=== PATIENT | female | born 1970 | race Caucasian/White ===

== ENCOUNTER 2019-01-12 11:24 | Emergency (ER) | payer OTHER ==
--- OUTSIDE RECORDS SUMMARY | 2019-01-12 11:30 | XMS REPORT ---
:1970 [facility] Address [address] [place] [address] [address] [place] [address] Care Team Providers Name Role Phone Unavailable Unavailable Unavailable Payers Payer Name Policy Type Policy Number Effective Date Expiration Date Problems This patient has no known problems. Allergies, Adverse Reactions, Alerts Allergy Name Allergy Status Severity Reaction(s) Onset Inactive Treating Comments Type Date Date Clinician No Known DA Active U 2008-0 Contrast 3-08 Allergies 00:00: 00 No Known Drug DA Active U 2008-0 Allergies 3-08 00:00: 00 No Known Food DA Active U 2009-0 Allergies 3-08 00:00: 00 No Known Other DA Active U 2009-0 Allergies 3-08 00:00: 00 No Known Drug DA Active U 2008-0 Intolerances 2-25 00:00: 00 Medications This patient has no known medications.
[2019-01-12 11:55] LABS: Absolute Lymphocytes (CBC) 2.3 K/uL (0.7-4.9); Basophils % 0.8 % (0-1.3); Hematocrit 37.6 % (36.0-45.0); Lymphocytes % 33.7 % (15.3-44.8); MPV 9.5 fL (7.6-11.3); RBC Red Blood Cell Count 4.47 M/uL (3.86-4.86)
--- NOTE | 2019-01-12 12:05 | RAD REPORT ---
EXAM DESCRIPTION: RAD - Chest Single View - 01/12/2019 11:50 am CLINICAL HISTORY: CHEST PAIN Chest pain. COMPARISON: No comparisons FINDINGS: Portable technique limits examination quality. The lungs are grossly clear. The heart is normal in size. No displaced fractures. IMPRESSION: No acute intrathoracic process suspected.
[2019-01-12] MEDS ORDERED: KETOROLAC 30 MG/ML INJ ONE (12:13)
[2019-01-12] MEDS ORDERED: ASPIRIN 81 MG CHEWABLE TABLET ONE (12:14)
[2019-01-12] MEDS ORDERED: NA CHLORIDE 0.9% 1,000 ML ONE (12:14)
[2019-01-12 12:17] LABS: ALT/SGPT 12 U/L (12-78); AST/SGOT 7 U/L (15-37); Albumin 3.6 g/dL (3.4-5.0); Alkaline Phosphatase 36 U/L (45-117); BUN Blood Urea Nitrogen 8 mg/dL (7-18); Bicarbonate 23 mmol/L (21-32); Bilirubin Direct 0.1 mg/dL (0-0.2); Bilirubin Total 0.3 mg/dL (0.2-1.0); Glucose Level 97 mg/dL (74-106); Magnesium 2.1 mg/dL (1.8-2.4); NT PRO-BNP 106 pg/mL (<125); Potassium 3.7 mmol/L (3.5-5.1); Protein, Total 7.2 g/dL (6.4-8.2); Sodium Level 143 mmol/L (136-145); Troponin (Emerg Dept Use Only) < 0.02 ng/mL (0.0-0.045)
[2019-01-12 12:18] LABS: Protime INR 0.88
--- NOTE | 2019-01-12 14:56 | EKG ---
Test Date: 2019-01-12 Test Time: 11:33:23 Patient Safety Manager: STEVAN MEASUREMENT RESULTS: Intervals: Rate: 94 [place]: 144 QRSD: 94 QT: 372 QTc: 465 [place]: P: 77 NJ: 144 QRS: 62 T: 54 INTERPRETIVE STATEMENTS: Normal sinus rhythm Normal ECG No previous ECG available for comparison Electronically Signed On 01-12-19 14:56:02 CDT by Mohan Dalton
[2019-01-12 16:26] LABS: Urine Blood NEGATIVE (NEG); Urine Glucose NEGATIVE (NEG); Urine Protein NEGATIVE (NEG); Urine pH 6.5 (5.0-7.0)
[2019-01-12 16:55] LABS: Urine RBC <5 /HPF (NONE SEEN)
[2019-01-12 16:56] LABS: Urine Bacteria 20-50 /HPF (<20); Urine Culture Reflex Order REFLEXED; Urine Mucus 2+ /HPF (NONE SEEN)
[2019-01-12] MEDS ORDERED: TRAMADOL HCL 50 MG TAB ONE (17:08)
--- NOTE | 2019-01-12 19:17 | ER ---
Nurse's Notes [facility] Name: Gali Najera Age: 48 yrs Sex: Female : 1970 Arrival Date: 01/12/2019 Time: 11:27 Bed 16 Private MD: Diagnosis: Chest pain, unspecified Presentation: 01/12 11:27 Presenting complaint: Patient states: "As I was driving this morning I started to have aj1 severe pain, I got home and tried to lay down and rest but I'm still feeling it. It's hard to breath, and it feels like I'm being squeezed." Reports left sided chest pain. Denies nausea, palpitations. Transition of care: patient was not received from another setting of care. Onset of symptoms was January 12, 2019 at 06:45. Risk Assessment: Do you want to hurt yourself or someone else? Patient reports no desire to harm self or others. Initial Sepsis Screen: Does the patient meet any 2 criteria? HR > 90 bpm. No. Patient's initial sepsis screen is negative. Does the patient have a suspected source of infection? No. Patient's initial sepsis screen is negative. Care prior to arrival: None. 11:27 Method Of Arrival: Wheelchair aj1 11:27 Acuity: RUPINDER 3 aj1 Triage Assessment: 11:29 General: Appears in no apparent distress. uncomfortable, Behavior is calm, cooperative, aj1 appropriate for age. Pain: Complains of pain in left breast Pain currently is 9 out of 10 on a pain scale. Pain: Pain does not radiate. Pain Quality of pain is described as squeezing. Neuro: Level of Consciousness is awake, alert, obeys commands, Oriented to person, place, time, situation. Cardiovascular: Reports chest pain, shortness of breath, Denies nausea, palpitations, Patient's skin is warm and dry. Respiratory: Airway is patent Respiratory effort is even, unlabored, Respiratory pattern is regular, symmetrical. 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 - Social history:: Smoking status: Patient/guardian denies using tobacco. - Ebola Screening: : Patient denies travel to an Ebola-affected area in the 21 days before illness onset. Screenin:48 Abuse screen: Denies threats or abuse. Denies injuries from another. Nutritional ss screening: No deficits noted. Tuberculosis screening: Never had TB. Fall Risk No fall in past 12 months (0 pts). No secondary diagnosis (0 pts). IV access (20 points). Assessment: 11:49 General: Appears uncomfortable, Behavior is anxious, tearful. Denies fever, feeling ss ill, fatigue, chills. Pain: Complains of pain in behind left breast Pain does not radiate. Pain currently is 6 out of 10 on a pain scale. at worst was 9 out of 10 on a pain scale. Quality of pain is described as squeezing, tender, Pain began this morning while driving Is continuous. Neuro: Level of Consciousness is awake, alert, obeys commands. Cardiovascular: Capillary refill < 3 seconds is brisk in bilateral fingers Patient's skin is warm and dry. Respiratory: Reports pain with cough pain with movement pain with respiration Airway is patent Respiratory effort is even, unlabored, Respiratory pattern is regular, symmetrical, Breath sounds are clear bilaterally. Denies cough, shortness of breath labored breathing. GI: Patient currently denies abdominal pain, diarrhea, nausea, vomiting. : No signs and/or symptoms were reported regarding the genitourinary system. EENT: Oral mucosa is dry. Derm: Skin is intact, is healthy with good turgor, Skin is dry, Skin is pink, warm \\T\\ dry. normal. Musculoskeletal: Circulation, motion, and sensation intact. Range of motion: intact in all extremities, Swelling absent. 12:23 General: I agree with the above assessment. Bed is in low, locked position. Call light rb1 within reach.. 13:20 Reassessment: Patient appears in no apparent distress at this time. Patient and/or rb1 family updated on plan of care and expected duration. Pain level reassessed. Patient is alert, oriented x 3, equal unlabored respirations, skin warm/dry/pink. Denies pain at this time. 14:19 Reassessment: Patient appears in no apparent distress at this time. No changes from rb1 previously documented assessment. 15:17 Reassessment: Patient appears in no apparent distress at this time. Patient and/or rb1 family updated on plan of care and expected duration. Pain level reassessed. Patient is alert, oriented x 3, equal unlabored respirations, skin warm/dry/pink. Patient states feeling better. 16:15 Reassessment: Patient appears in no apparent distress at this time. No changes from rb1 previously documented assessment. 16:37 Reassessment: Pt. requested something for pain; provider notified. rb1 17:00 Reassessment: Patient appears in no apparent distress at this time. Patient and/or rb1 family updated on plan of care and expected duration. Pain level reassessed. Patient is alert, oriented x 3, equal unlabored respirations, skin warm/dry/pink. Vital Signs: 11:29 BP 127 / 66; Pulse 93; Resp 18; Temp 99.2; Pulse Ox 99% on R/A; Weight 70.31 kg (R); aj1 Height 5 ft. 3 in. (160.02 cm) (R); Pain 9/10; 12:27 BP 126 / 68; Pulse 84; Resp 17; Temp 98.1(O); Pulse Ox 99% on R/A; Pain 6/10; rb1 13:25 BP 118 / 76; Pulse 74; Resp 15; Temp 98.1(O); Pulse Ox 100% on R/A; Pain 0/10; rb1 14:25 BP 110 / 66; Pulse 80; Resp 14; Temp 98.3(O); Pulse Ox 100% on R/A; rb1 15:20 BP 117 / 65; Pulse 82; Resp 18; Temp 98.2(O); Pulse Ox 100% on R/A; rb1 16:20 BP 128 / 78; Pulse 80; Resp 16; Temp 98.4(O); Pulse Ox 99% on R/A; Pain 6/10; rb1 17:15 BP 121 / 58; Pulse 81; Resp 20; Temp 98.3(O); Pulse Ox 100% on R/A; Pain 6/10; rb1 11:29 Body Mass Index 27.46 (70.31 kg, 160.02 cm) aj1 ED Course: 11:27 Patient arrived in ED. aj1 11:29 Triage completed. aj1 11:31 Arm band placed on. aj1 11:33 Dorian Vanessa PA is PHCP. cp 11:33 Isaac Aceves MD is Attending Physician. cp 11:48 Patient has correct armband on for positive identification. laboratory monitor on. Pulse ss ox on. NIBP on. 11:48 Inserted saline lock: 20 gauge in left antecubital area, using aseptic technique. Blood ss collected. Patient maintains SpO2 saturation greater than 95% on room air. 12:11 Katrina Garza, RN is Primary Nurse. rb1 16:09 EKG done, by staging technician. reviewed by Dorian TIM. sm3 16:58 Scot Garzon MD is Referral Physician. cp 17:25 No provider procedures requiring assistance completed. IV discontinued, intact, rb1 bleeding controlled, No redness/swelling at site. Pressure dressing applied. Administered Medications: 12:22 Drug: TORadol 30 mg Route: IVP; Site: left antecubital; rb1 12:35 Follow up: Response: No adverse reaction; Pain is decreased rb1 12:22 Drug: NS 0.9% 1000 ml Route: IV; Rate: 1 bolus; Site: left antecubital; rb1 13:33 Follow up: IV Status: Completed infusion rb1 12:22 Drug: Aspirin Chewable Tablet 324 mg Route: PO; rb1 12:35 Follow up: Response: No adverse reaction rb1 17:05 Drug: UltRAM 50 mg Route: PO; rb1 17:18 Follow up: Response: Medication administered at discharge. rb1 17:17 Not Given (Provider changed order): Hydrocodone-Acetaminophen (7.5 mg-325 mg) 1 tabs PO rb1 once; RASS on ADMIN: Combtv4, Very Agttd3, Agttd2, Rstlss1, AlertClm0, Drwsy-1, Lt Sdtn-2, Mod Sdtn-3, Dp Sdtn-4, UnArsble-5 Outcome: 16:58 Discharge ordered by MD. cp 17:25 Patient left the ED. rb1 17:25 Discharged to home ambulatory, with family. rb1 17:25 Condition: stable 17:25 Discharge instructions given to patient, Instructed on discharge instructions, follow up and referral plans. medication usage, Demonstrated understanding of instructions, follow-up care, medications, Prescriptions given X 3. Signatures: Danita Blue RN RN aj1 Cheli Jeff RN RN ss Page, Corey, PA PA cp Greg, Katrina, RN RN rb1 Rhona Morris 3
--- NOTE | 2019-01-12 19:18 | EDPHYS ---
Physician Documentation [facility] Name: Gali Najera Age: 48 yrs Sex: Female : 1970 Arrival Date: 01/12/2019 Time: 11:27 Bed 16 Private MD: ED Physician Isaac Aceves HPI: 01/12 11:45 This 48 yrs old Female presents to ER via Wheelchair with complaints of Chest cp Pain. 11:45 The patient or guardian reports chest pain that is located primarily in the anterior cp chest wall, left. Onset: this morning, at 06:30. The pain does not radiate. Associated signs and symptoms: Pertinent negatives: abdominal pain, congestion, cough, fever, headache, wheezing. 11:45 The chest pain is described as squeezing. cp 11:45 Associated signs and symptoms: Pertinent positives: shortness of breath, Pertinent cp negatives: abdominal pain, diaphoresis, lower extremity pain, lower extremity swelling, syncope, vomiting. Duration: The patient or guardian reports a single episode, that is still ongoing, and unchanged. 11:45 Severity of pain: in the emergency department the pain is a 9 / 10. 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 - Social history:: Smoking status: Patient/guardian denies using tobacco. - Ebola Screening: : Patient denies travel to an Ebola-affected area in the 21 days before illness onset. ROS: 11:50 Constitutional: Negative for body aches, chills, fever, poor PO intake. cp 11:50 Eyes: Negative for injury, pain, redness, and discharge. cp 11:50 ENT: Negative for drainage from ear(s), ear pain, sore throat, difficulty swallowing, difficulty handling secretions. 11:50 Cardiovascular: Positive for chest pain, Negative for edema, palpitations. 11:50 Respiratory: Positive for shortness of breath, Negative for cough, wheezing. 11:50 Abdomen/GI: Negative for abdominal pain, nausea, vomiting, and diarrhea, black/tarry stool, rectal bleeding. 11:50 Back: Negative for pain at rest, pain with movement, radiated pain. 11:50 : Negative for urinary symptoms. 11:50 Skin: Negative for cellulitis, rash. 11:50 Neuro: Negative for altered mental status, dizziness, headache, syncope, weakness. 11:50 All other systems are negative. Exam: 11:40 ECG was reviewed by the Attending Physician. cp 11:55 Constitutional: The patient appears in no acute distress, alert, awake, cp non-diaphoretic, non-toxic, well developed, well nourished, uncomfortable. 11:55 Head/Face: Normocephalic, atraumatic. Eyes: Pupils equal round and reactive to light, cp extra-ocular motions intact. Lids and lashes normal. Conjunctiva and sclera are non-icteric and not injected. Cornea within normal limits. Periorbital areas with no swelling, redness, or edema. ENT: Nares patent. No nasal discharge, no septal abnormalities noted. Tympanic membranes are normal and external auditory canals are clear. Oropharynx with no redness, swelling, or masses, exudates, or evidence of obstruction, uvula midline. Mucous membranes moist. Neck: Trachea midline, no thyromegaly or masses palpated, and no cervical lymphadenopathy. Supple, full range of motion without nuchal rigidity, or vertebral point tenderness. No Meningismus. Chest/axilla: Normal chest wall appearance and motion. Nontender with no deformity. No lesions are appreciated. Cardiovascular: Regular rate and rhythm with a normal S1 and S2. No gallops, murmurs, or rubs. Normal PMI, no JVD. No pulse deficits. Respiratory: Lungs have equal breath sounds bilaterally, clear to auscultation and percussion. No rales, rhonchi or wheezes noted. No increased work of breathing, no retractions or nasal flaring. Abdomen/GI: Soft, non-tender, with normal bowel sounds. No distension or tympany. No guarding or rebound. No evidence of tenderness throughout. Back: No spinal tenderness. No costovertebral tenderness. Full range of motion. 11:55 Neuro: Orientation: to person, place \T\ time. Mentation: is normal, Motor: moves all fours, strength is normal, Sensation: no obvious gross deficits. Vital Signs: 11:29 BP 127 / 66; Pulse 93; Resp 18; Temp 99.2; Pulse Ox 99% on R/A; Weight 70.31 kg (R); aj1 Height 5 ft. 3 in. (160.02 cm) (R); Pain 9/10; 12:27 BP 126 / 68; Pulse 84; Resp 17; Temp 98.1(O); Pulse Ox 99% on R/A; Pain 6/10; rb1 13:25 BP 118 / 76; Pulse 74; Resp 15; Temp 98.1(O); Pulse Ox 100% on R/A; Pain 0/10; rb1 14:25 BP 110 / 66; Pulse 80; Resp 14; Temp 98.3(O); Pulse Ox 100% on R/A; rb1 15:20 BP 117 / 65; Pulse 82; Resp 18; Temp 98.2(O); Pulse Ox 100% on R/A; rb1 16:20 BP 128 / 78; Pulse 80; Resp 16; Temp 98.4(O); Pulse Ox 99% on R/A; Pain 6/10; rb1 17:15 BP 121 / 58; Pulse 81; Resp 20; Temp 98.3(O); Pulse Ox 100% on R/A; Pain 6/10; rb1 11:29 Body Mass Index 27.46 (70.31 kg, 160.02 cm) aj1 MDM: 11:35 Patient medically screened. cp 16:57 The patient was given aspirin in the Emergency Department. cp 16:57 Differential diagnosis: abnormal EKG, acute myocardial infarction, acute pericarditis, cp chest wall pain, pneumonia, pneumothorax, pulmonary embolus, stable angina, unstable angina. Data reviewed: vital signs, nurses notes, lab test result(s), EKG, radiologic studies, plain films. Test interpretation: by ED physician or midlevel provider: ECG, plain radiologic studies. Counseling: I had a detailed discussion with the patient and/or guardian regarding: the historical points, exam findings, and any diagnostic results supporting the discharge/admit diagnosis, lab results, radiology results, the need for outpatient follow up, a billing coordinator, to return to the emergency department if symptoms worsen or persist or if there are any questions or concerns that arise at home. Response to treatment: the patient's symptoms have markedly improved after treatment, and as a result, I will discharge patient. Special discussion: Based on the patient's history, exam, and Dx evaluation, there is no indication for emergent intervention or inpatient Tx. It is understood by the patient/guardian that if the Sx's persist or worsen they need to return immediately for re-evaluation. 01/12 11:41 Order name: Basic Metabolic Panel cp 01/12 11:41 Order name: CBC with Diff cp 01/12 11:41 Order name: LFT's cp 01/12 11:41 Order name: Magnesium cp 01/12 11:41 Order name: NT PRO-BNP cp 01/12 11:41 Order name: PT-INR cp 01/12 11:41 Order name: Troponin (emerg Dept Use Only) cp 01/12 11:41 Order name: XRAY Chest (1 view) 01/12 11:41 Order name: D-Dimer 01/12 15:38 Order name: Troponin I cp 01/12 11:41 Order name: EKG; Complete Time: 11:42 cp 01/12 11:41 Order name: Cardiac monitoring; Complete Time: 12:04 cp 01/12 11:41 Order name: EKG - Nurse/Tech; Complete Time: 12:04 cp 01/12 11:41 Order name: IV Saline Lock; Complete Time: 12:04 cp 01/12 11:41 Order name: Labs collected and sent; Complete Time: 12:04 cp 01/12 11:41 Order name: O2 Per Protocol; Complete Time: 12:04 cp 01/12 11:41 Order name: O2 Sat Monitoring; Complete Time: 12:04 cp 01/12 11:41 Order name: Urine Test (obtain specimen); Complete Time: 15:46 cp 01/12 11:41 Order name: Urine Dipstick-Ancillary (obtain specimen); Complete Time: 15:46 cp 01/12 15:38 Order name: EKG; Complete Time: 16:31 cp 01/12 15:38 Order name: EKG - Nurse/Tech; Complete Time: 15:46 cp EC:40 Rate is 94 beats/min. Rhythm is regular. NE interval is normal. QRS interval is normal. cp QT interval is normal. Interpreted by me. Reviewed by me. Administered Medications: 12:22 Drug: TORadol 30 mg Route: IVP; Site: left antecubital; rb1 12:35 Follow up: Response: No adverse reaction; Pain is decreased rb1 12:22 Drug: NS 0.9% 1000 ml Route: IV; Rate: 1 bolus; Site: left antecubital; rb1 13:33 Follow up: IV Status: Completed infusion rb1 12:22 Drug: Aspirin Chewable Tablet 324 mg Route: PO; rb1 12:35 Follow up: Response: No adverse reaction rb1 17:05 Drug: UltRAM 50 mg Route: PO; rb1 17:18 Follow up: Response: Medication administered at discharge. rb1 17:17 Not Given (Provider changed order): Hydrocodone-Acetaminophen (7.5 mg-325 mg) 1 tabs PO rb1 once; RASS on ADMIN: Combtv4, Very Agttd3, Agttd2, Rstlss1, AlertClm0, Drwsy-1, Lt Sdtn-2, Mod Sdtn-3, Dp Sdtn-4, UnArsble-5 Disposition: 01/13 07:26 Co-signature as Attending Physician, Isaac Aceves MD I agree with the assessment and kdr plan of care. Disposition: 01/12/19 16:58 Discharged to Home. Impression: Chest pain, unspecified. - Condition is Stable. - Discharge Instructions: Nonspecific Chest Pain, Aspirin and Your Heart. - Prescriptions for Pepcid 20 mg Oral Tablet - take 1 tablet by ORAL route every 12 hours for 10 days; 20 tablet. Diclofenac Sodium 75 mg Oral Tablet, Delayed Release (E.C.) - take 1 tablet by ORAL route 2 times per day; 20 tablet. Tramadol 50 mg Oral Tablet - take 1 tablet by ORAL route every 8 hours as needed; 12 tablet. - Medication Reconciliation Form, Thank You Letter, Antibiotic Education, Prescription Opioid Use form. - Follow up: Scot Garzon MD; When: 2 - 3 days; Reason: Recheck today's complaints. - Problem is new. - Symptoms have improved. Signatures: Dispatcher [employer] EDDanita Pena RN RN aj1 Isaac Aceves MD MD kdr Dorian Vanessa PA PA cp Barber, Rebecca RN RN rb1 Corrections: (The following items were deleted from the chart) 01/12 17:25 16:58 01/12/2019 16:58 Discharged to Home. Impression: Chest pain, unspecified. rb1 Condition is Stable. Forms are Medication Reconciliation Form, Thank You Letter, Antibiotic Education, Prescription Opioid Use. Follow up: Scot Garzon; When: 2 - 3 days; Reason: Recheck today's complaints. Problem is new. Symptoms have improved. cp
--- NOTE | 2019-01-15 08:14 | EKG ---
Test Date: 2019-01-12 Test Time: 16:02:47 Radio Interference Expert: CARINE MEASUREMENT RESULTS: Intervals: Rate: 75 NC: 182 QRSD: 98 QT: 404 QTc: 451 [place]: P: 65 NC: 182 QRS: 47 T: 49 INTERPRETIVE STATEMENTS: Normal sinus rhythm Normal ECG Compared to ECG 01/12/2019 11:33:23 No significant changes Electronically Signed On 01-15-19 08:08:15 CDT by Mohan Dalton
== END 2019-01-12 17:25 | disposition home or self-care (01) ==
LOC: ER 11:24
DX: R07.9 Chest pain, unspecified (principal)
CPT/HCPCS: 96361; 93005 ×2; 87088; 85025; 87086; 80048; 36415; 83735; 81025; 85610; 85379; 80076; 84484 ×2; 83880; 71045; 96374; 99285; J7030; 81003; 81015

== ENCOUNTER 2022-03-13 09:15 | Emergency (ER) | payer BC, OTHER ==
--- OUTSIDE RECORDS SUMMARY | 2022-03-13 09:20 | XMS REPORT | Continuity of Care Document ---
:1970 Author Organization [facility] t Address [address] [place] [address] Care Team Providers Name Role Phone Edwige Villar Attending Clinician Unavailable Ajay Villanueva Attending Clinician Unavailable Ajay Villanueva Admitting Clinician Unavailable Physician, No Primary or Family Admitting Clinician Unavaila ble Payers Payer Name Policy Type Policy Number Effective Date Expiration Date Yadira lazo [employer] 6 [id number] 2019 Common Spiri t Blue Shield of 00:00:00 - [facility] Problems Condition Condition Condition Status Onset Resolution Last Treating Co mments Source Name Details Category Date Date Treatment Clinician Date [id number] Other Problem Active Common cerebral Spirit palsy - [facility] [id number] Seizure Problem Active Commo n disorder Spirit [facility] Migraine Migraine Problem Active Commo n [facility] [id number] Migraine Problem Active Common with aura Spirit and - [facility] migrainosu Medica l s, not Center intractabl e [id number] Chronic Problem Active Common fatigue [facility] [id number] Generalize Problem Active Com mon d anxiety Spirit disorder - [facility] Seizure Seizure Problem Active Common [facility] Vitamin D Vitamin D Problem Active Com mon deficiency deficiency Sp [facility] Unsteady Unsteady Problem Active Commo n gait gait [facility] 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 - [facility] characteri with St zed by constipati kes constipati on Medica l on Center [id number] Seasonal Problem Active Comm on allergic Spirit rhinitis, - [facility] unspecifie [facility] [id number] Thyroid Problem Active Commo n disorder Spirit screening [facility] [id number] Abnormal Problem Active Comm on weight [facility] gain [facility] Allergies, Adverse Reactions, Alerts Allergy Allergy Status Severity Reaction(s) Onset Inactive Treating Comm ents Source Name Type Date Date Clinician No Known DA Active U 2008- [facility] Cont[facility] 3-08 [facility] 00 [facility] No Known DA Active U 2008- [facility] Drug 3-08 [facility]: [facility]osp[facility] 00 [facility] No Known DA Active U 2008-0 [facility] Food 3-08 [facility]: Hospita s [address] [place] [address] No Known DA Active U 2009-0 [facility] Other 3-08 [facility]: Hospita s [address] [place] [address] No Known DA Active U 2008-0 [facility] Drug 2-25 [facility]: Hospita nces [address] [place] [address] No Known DA Active U 2008-0 [facility] Drug 2-25 [facility] 00:[facility]: [facility]ospita nces 00 [facility] Social History Social Habit Start Date Stop Date Quantity Comments Source History of Tobacco Use Co mmon [facility] Sex Assigned At Com mon [facility] Smoking Status Start Date Stop Date Source Never Smoker [facility] Medications Ordered Filled Start Stop Current Ordering Indication Dosage Frequency Signature Comments Components Source Medication Medication Date Date Medication? Clinician (SIG) Name Name Cetirizine Cetirizine Yes Na Villar 1 tablet Common HCl HCl 7 Spirit 00:00: - [facility] Cetirizine Cetirizine No 1{table Cetirizine HCl 10 MG HCl 10 MG 7-28 t} HCl 10 MG 00:00: 00 Cetirizine Cetirizine 2020-0 No 1{table Cetirizine HCl 10 MG HCl 10 MG 7-28 t} HCl 10 MG 00:00: 00 Cetirizine Cetirizine 2020-0 No 1{table Cetirizine HCl 10 MG HCl 10 MG 7-28 t} HCl 10 MG 00:00: 00 Cetirizine Cetirizine 2020-0 No 1{table Cetirizine HCl 10 MG HCl 10 MG 7-28 t} HCl 10 MG 00:00: 00 Linzess Linzess 2020-0 2020- No Na Villar 1 tab Co mmon 09-11 Spirit 00:00: 00:00 - [facility] 00 :00 [facility] Polytrim Polytrim Yes Na Villar 1 drop Co mmon into Spirit affected - [facility] eye [facility] Atropine Atropine Yes Na Villar 1 Comm on Sulfate Sulfate applicatio Spi rit n into the - [facility] lower [facility] eyelid [facility] eye [place] PrednisoLON PrednisoLON Yes Na Villar 1 drop Common E Acetate E Acetate into Spiri t affected - [facility]I eye [facility] Polytrim Polytrim No 1{drop_ QID Polytrim 18085-5.1 77510-3.1 into_af 54412-6.1 UNIT/ML UNIT/ML fected_ UNIT/ML eye} PrednisoLON PrednisoLON No 1{drop_ BID PrednisoLO E Acetate 1 E Acetate 1 into_af NE Acetate % % fected_ 1 % eye} Atropine Atropine No QD Atropine Sulfate 1 % Sulfate 1 % Sulfate 1 % Polytrim Polytrim No 1{drop_ QID Polytrim 37235-6.1 06977-3.1 into_af 62671-0.1 UNIT/ML UNIT/ML fected_ UNIT/ML eye} PrednisoLON PrednisoLON No 1{drop_ BID PrednisoLO E Acetate 1 E Acetate 1 into_af NE Acetate % % fected_ 1 % eye} Atropine Atropine No QD Atropine Sulfate 1 % Sulfate 1 % Sulfate 1 % Cetirizine Cetirizine No 1{table Cetirizine HCl 10 MG HCl 10 MG t} HCl 10 MG Immunizations Ordered Immunization Filled Immunization Date Status Commen ts Source Name Name NovaSparksID-19 [employer] COVID-19 2020-08-18 Completed Comm on Spirit Vaccine Vaccine 08:49:00 - [facility] Pfizer COVID-19 Pfizer COVID-19 2020-08-18 Completed Comm on Spirit Vaccine Vaccine 08:49:00 - [facility] Pfizer COVID-19 Pfizer COVID-19 2020-08-18 Completed Comm on Spirit Vaccine Vaccine 08:49:00 [facility] Pfizer COVID-19 Pfizer COVID-19 2020-07-28 Completed Comm on Spirit Vaccine Vaccine 08:48:00 - [facility] Pfizer COVID-19 Pfizer COVID-19 2020-07-28 Completed Comm on Spirit Vaccine Vaccine 08:48:00 - [facility] Pfizer COVID-19 Pfizer COVID-19 2020-07-28 Completed Comm on Spirit Vaccine Vaccine 08:48:00 - [facility] Afluria Afluria 2018-04-01 Completed Common Spirit 11:03:00 [facility] Afluria Afluria 2018-04-01 Completed Common [facility]:03:00 [facility] 2018-04-01 Completed [facility] 11:03:00 [facility] Afluria Afluria 2018-04-01 Completed Common Spirit 11:03:00 [facility] Afluria Afluria 2018-04-01 Completed Common Spirit 11:03:00 [facility] Vital Signs Vital Name Observation Time Observation Value Comments Source temperature 2021-09-15 08:00:00 97.4 [degF] [facility] bmi 2021-09-15 08:00:00 26.36 kg/m2 [facility] oximetry 2021-09-15 08:00:00 98 % [facility] respiratory rate 2021-09-15 08:00:00 16 /min Comm on [facility] blood pressure 2021-09-15 08:00:00 121 mm[Hg] Common [facility] - systolic [facility] blood pressure 2021-09-15 08:00:00 67 mm[Hg] Common [facility] - diastolic [facility] height 2021-09-15 08:00:00 63.50 [in_i] Common [facility] weight 2021-09-15 08:00:00 151.2 [lb_av] Common [facility] height 2021-03-31 08:00:00 63.50 [in_i] Common [facility] weight 2021-03-31 08:00:00 153 [lb_av] Common [facility] temperature 2021-03-31 08:00:00 97.8 [degF] Common [facility] bmi 2021-03-31 08:00:00 26.67 kg/m2 [facility] oximetry 2021-03-31 08:00:00 98 % [facility] blood pressure 2021-03-31 08:00:00 127 mm[Hg] Common [facility] - systolic [facility] blood pressure 2021-03-31 08:00:00 66 mm[Hg] Common [facility] - diastolic [facility] height 2020-09-24 08:40:00 63.50 [in_i] [facility] weight 2020-09-24 08:40:00 153.6 [lb_av] [facility] temperature 2020-09-24 08:40:00 97.7 [degF] [facility] bmi 2020-09-24 08:40:00 26.78 kg/m2 [facility] oximetry 2020-09-24 08:40:00 98 % [facility] respiratory rate 2020-09-24 08:40:00 15 /min Comm on [facility] blood pressure 2020-09-24 08:40:00 114 mm[Hg] Common [facility] - systolic [facility] blood pressure 2020-09-24 08:40:00 57 mm[Hg] [facility] diastolic [facility] Procedures This patient has no known procedures. Encounters Start End Encounter Admission Attending Care Care Encounter Source Date/Time Date/Time Type Type Clinicians Facility Department ID 2021-06-11 Outpatient Edwige Villar STLMLC STLMLC [id number] 2 Common 12:04:12 [id number] [facility] 2021-06-11 Outpatient Edwige Villar STLMLC STLMLC [id number] 2 Common 11:19:27 [id number] [facility] 2021-09-15 2021-09-15 OFFICE STLMLC STLMLC [id number] Co mmon 00:00:00 00:00:00 VISIT [facility] PT - [facility] LEVEL 4 [facility] 2021-04-01 2021-04-01 (TEL) STLMLC STLMLC [id number] Co mmon 00:00:00 00:00:00 [facility] 2021-03-31 2021-03-31 OFFICE STLMLC STLMLC [id number] Co mmon 00:00:00 00:00:00 VISIT EST Spir it PT LEVEL 3 [facility] 2021-03-14 2021-03-14 Outpatient Ajay Kapadia [facility] F00 [id number] [facility] 12:00:00 12:00:[address] [facility] 2020-09-27 2020-09-27 (TEL) STLMLC STLMLC [id number] Co mmon 00:00:00 00:00:00 [facility] 2020-09-24 2020-09-24 OFFICE STLMLC STLMLC [id number] Co mmon 00:00:00 00:00:00 VISIT EST Spir it PT LEVEL 3 [facility] 2020-07-29 2020-07-29 Outpatient STLMLC STLMLC [id number] Common 00:00:00 00:00:00 [facility] 2020-04-11 2020-04-11 Outpatient STLMLC STLMLC [id number] Common 00:00:00 00:00:00 [facility] 2020-03-27 2020-03-27 Outpatient STLMLC STLMLC [id number] Common 00:00:00 00:00:00 [facility] 2020-03-18 2020-03-18 Outpatient Ajay Kapadia [facility] F00 [id number] [facility] 12:00:00 12:00:00 82 [facility] 2020-03-08 2020-03-08 Outpatient Ajay Kapadia [facility] F00 [id number] [facility] 12:00:00 12:00:00 50 [facility] 2019-12-11 2019-12-11 [facility] [id number] Common 10:03:00 10:03:[address] [facility] 2019-09-21 2019-09-21 [facility] [id number] Common 15:00:00 15:00:[address] [facility] 2019-09-12 2019-09-12 [facility] [id number] Common 09:20:00 09:20:[address] [facility] 2019-08-28 2019-08-28 [facility] [id number] Common 10:00:00 10:00:[address] [facility] [address] [facility] 2019-08-28 2019-08-28 [facility] [id number] Common 08:56:00 08:56:[address] [facility] Results Test Description Test Time Test Comments Results Result Comments Source Lipid Panel w/ Chol/HDL Ratio 2021-03-31 00:00:00 Test Item Value Reference Range Interpretation Comme nts Cholesterol, Total (test code = 2093-3) 187 100-199 Triglycerides (test code = 2571-8) 87 0-149 HDL Cholesterol (test code = 2085-9) 58 >39 T. Chol/HDL Ratio (test code = 9830-1) 3.2 0.0-4.4 UA/M w/rflx Culture, [id number] 00:00:00 Test Item Value Reference Range Interpretation Comments Specific [place] (test code = 1.026 1.005-1.030 2965-2) pH (test code = 5803-2) 8.0 5.0-7.5 Urine-Color (test code = 5778-6) Yellow Yellow Appearance (test code = 5767-9) Clear Clear WBC Esterase (test code = 5799-2) Negative Negative Protein (test code = 06229-9) Trace Negative/Trace Glucose (test code = 2349-9) Negative Negative Ketones (test code = 2514-8) Negative Negative Occult Blood (test code = 5794-3) Negative Negative Bilirubin (test code = 5770-3) Negative Negative Urobilinogen,Semi-Qn (test code = 0.2 0.2-1.0 11717-3) Nitrite, Urine (test code = Negative Negative 5802-4) Microscopic Examination (test code See below: = 98429-9) Urinalysis Reflex (test code = UNLOINC) Comp. Metabolic Panel (14) ([facility])2021-03-31 00:00:00 Test Item Value Reference Range Interpretation Comments Glucose (test code = 2345-7) 100 65-99 BUN (test code = 3094-0) 11 6-24 Creatinine (test code = 2160-0) 0.80 0.57-1.00 eGFR If NonAfricn Am (test code = 86 >59 08335-9) eGFR If Africn Am (test code = 95077-0) 99 >59 BUN/Creatinine Ratio (test code = 14 02-06 3097-3) Sodium (test code = 2951-2) 140 134-144 Potassium (test code = 2823-3) 4.1 3.5-5.2 Chloride (test code = 2075-0) 103 96-106 Carbon Dioxide, Total (test code = -2028-01) Calcium (test code = 68589-1) 9.2 8.7-10.2 Protein, Total (test code = 2885-2) 6.7 6.0-8.5 Albumin (test code = 1751-7) 4.4 3.8-4.8 Globulin, Total (test code = 22130-5) 2.3 1.5-4.5 A/G Ratio (test code = 1759-0) 1.9 1.2-2.2 Bilirubin, Total (test code = 1974-2) 0.3 0.0-1.2 Alkaline Phosphatase (test code = 43 44-121 6768-6) AST (SGOT) (test code = 1920-8) 12 0-40 ALT (SGPT) (test code = 1742-6) 10 0-32 CBC With Differential/[id number] 00:00:00 Test Item Value Reference Range Interpretation Comments WBC (test code = 6690-2) 4.7 3.4-10.8 RBC (test code = 789-8) 4.78 3.77-5.28 Hemoglobin (test code = 718-7) 13.4 11.1-15.9 Hematocrit (test code = 4544-3) 41.0 34.0-46.6 MCV (test code = 787-2) 86 79-97 MCH (test code = 785-6) 28.0 26.6-33.0 MCHC (test code = 786-4) 32.7 31.5-35.7 RDW (test code = 788-0) 13.1 11.7-15.4 Platelets (test code = 777-3) 275 150-450 Neutrophils (test code = 770-8) 55 Not Estab. Lymphs (test code = 736-9) 34 Not Estab. Monocytes (test code = 5905-5) 8 Not Estab. Eos (test code = 713-8) 2 Not Estab. Basos (test code = 706-2) 1 Not Estab. Immature Cells (test code = UNLOINC) Neutrophils (Absolute) (test code = 2.5 1.4-7.0 751-8) Lymphs (Absolute) (test code = 731-0) 1.6 0.7-3.1 Monocytes(Absolute) (test code = 742-7) 0.4 0.1-0.9 Eos (Absolute) (test code = 711-2) 0.1 0.0-0.4 Baso (Absolute) (test code = 704-7) 0.1 0.0-0.2 Immature Granulocytes (test code = 0 Not Estab. 62718-2) Immature Grans (Abs) (test code = 0.0 0.0-0.1 72067-3) NRBC (test code = 06609-2) Hematology Comments: (test code = 26263-0) Vitamin D, 55-[id number] 00:00:00 Test Item Value Reference Range Interpretation Comments Vitamin D, 25-Hydroxy (test code = 36.5 30.0-100.0 1988-3) TSH reflex to [id number] 00:00:00 Test Item Value Reference Range Interpretation Comments TSH (test code = 97840-1) 2.380 0.450-4.500
[2022-03-13] MEDS ORDERED: IBUPROFEN 200 MG TAB PO ONE (10:53)
[2022-03-13] MEDS ORDERED: ACETAMINOPHEN 325 MG TABLET ONE (10:53)
[2022-03-13] MEDS ORDERED: IBUPROFEN 400 MG TAB ONE (10:53)
--- NOTE | 2022-03-13 11:03 | EDPHYS ---
Physician Documentation [facility] Name: Gali Najera Age: 51 yrs Sex: Female : 1970 Arrival Date: 03/13/2022 Time: 09:17 Bed DIS3 Private MD: Edwige Villar ED Physician Star Langley HPI: 03/13 10:00 This 51 yrs old Female presents to ER via Ambulatory with complaints of Arm Pain, Arm cp Injury. 10:00 The patient or guardian complains of injury, pain, that is acute. The complaints affect cp the right bicep. 10:00 Context: resulted from arm was jerked while walking dog 2 weeks ago. cp 10:00 Modifying factors: the symptoms are aggravated by movement. cp [employer]: 09:53 LMP N/A - Irregular menses jl7 Historical: - Allergies: 09:53 No Known Allergies; jl7 - Home Meds: 09:53 None [Active]; jl7 - PMHx: 09:53 Cerebral Palsy; Migraines; jl7 - PSHx: 09:53 None; jl7 - Immunization history:: Client reports receiving the 2nd dose of the Covid vaccine. - Social history:: Smoking status: Patient denies any tobacco usage or history of. ROS: 10:05 MS/extremity: Positive for pain, tenderness, of the right bicep, Negative for decreased cp range of motion, deformity. 10:05 Constitutional: Negative for fever. cp 10:05 Eyes: Negative for injury, pain, redness, and discharge. cp 10:05 Neck: Negative for pain with movement, pain at rest. cp 10:05 Cardiovascular: Negative for chest pain. 10:05 Respiratory: Negative for cough, shortness of breath, wheezing. 10:05 Abdomen/GI: Negative for abdominal pain, nausea, vomiting, and diarrhea. 10:05 Neuro: Negative for altered mental status, headache, weakness. 10:05 All other systems are negative. Exam: 10:10 Constitutional: The patient appears in no acute distress, alert, awake, non-toxic, well cp developed, well nourished. 10:10 Head/Face: Normocephalic, atraumatic. cp 10:10 Neck: C-spine: vertebral tenderness, is not appreciated, crepitus, is not appreciated, ROM/movement: is normal, is supple, without pain, no range of motions limitations. 10:10 Chest/axilla: Inspection: normal. 10:10 Cardiovascular: Rate: normal, Rhythm: regular. 10:10 Respiratory: the patient does not display signs of respiratory distress, Respirations: normal, no use of accessory muscles, no retractions, labored breathing, is not present, Breath sounds: are clear throughout, no decreased breath sounds. 10:10 Back: pain, is absent, ROM is normal. 10:10 Musculoskeletal/extremity: Extremities: grossly normal except: noted in the right bicep and anterior aspect of right shoulder: pain, tenderness, There is no evidence of decreased ROM, deformity. Vital Signs: 09:50 BP 158 / 88; Pulse 110; Resp 17; Temp 97.2; Pulse Ox 98% ; Weight 72.57 kg; Height 5 jl7 ft. 3 in. (160.02 cm); Pain 8/10; 09:50 Body Mass Index 28.34 (72.57 kg, 160.02 cm) 7 MDM: 09:55 Patient medically screened. 10:56 Test interpretation: by ED physician or midlevel provider: xrays of right humerus cp negative for fracture. 11:02 Data reviewed: vital signs, nurses notes, radiologic studies, plain films. cp 11:02 Differential diagnosis: closed fracture, contusion, strain, tendon rupture, muscle cp tear. Counseling: I had a detailed discussion with the patient and/or guardian regarding: the historical points, exam findings, and any diagnostic results supporting the discharge/admit diagnosis, radiology results, the need for outpatient follow up, a orthopedic surgeon, to return to the emergency department if symptoms worsen or persist or if there are any questions or concerns that arise at home. Response to treatment: the patient's symptoms have mildly improved after treatment. 03/13 09:59 Order name: XRAY Humerus RIGHT; Complete Time: 11:23 cp 03/13 11:23 Interpretation: Report reviewed. 03/13 10:52 Order name: Sling; Complete Time: 11:41 cp Administered Medications: 11:00 Drug: Ibuprofen 800 mg Route: PO; [facility] 11:30 Follow up: Response: No change in condition [facility] 11:00 Drug: Tylenol 650 mg Route: PO; [facility] 11:30 Follow up: Response: No adverse reaction [facility] Disposition: 10:56 Co-signature as Attending Physician, Star Langley DO I was immediately available on-site ms3 in the Emergency Department for consultation in the care of the patient. Disposition Summary: 03/13/22 11:02 Discharge Ordered Location: Home cp Problem: new cp Symptoms: have improved cp Condition: Stable cp Diagnosis - Strain of muscle, fascia and tendon of other parts of biceps, right arm, initial cp encounter Followup: cp - With: Jaren Alfaro MD - When: 2 - 3 days - Reason: Recheck today's complaints Discharge Instructions: - Discharge Summary Sheet cp - Muscle Strain cp Forms: - Medication Reconciliation Form cp - Thank You Letter cp - Antibiotic Education cp - Prescription Opioid Use cp Prescriptions: - Ibuprofen 800 mg Oral Tablet - take 1 tablet by ORAL route every 8 hours As needed take with food; 30 tablet; cp Refills: 0, Product Selection Permitted Signatures: Dispatcher [employer] EDMS Dorian Vanessa PA PA cp Leal, Jahala, RN RN jl7 Star Langley DO DO ms3 Deb Bryan, RN RN jh5
--- NOTE | 2022-03-13 11:03 | ER ---
Nurse's Notes [facility] Name: Gali Najera Age: 51 yrs Sex: Female : 1970 Arrival Date: 03/13/2022 Time: 09:17 Bed DIS3 Private MD: Edwige Villar Diagnosis: Strain of muscle, fascia and tendon of other parts of biceps, right arm, initial encounter Presentation: 03/13 09:50 Chief complaint: Patient states: Dog pulled arm about two weeks ago, hx of cerebral jl7 palsy, continues pain to right arm, ROM decreased in right shoulder; PCP Dr. Villar sent me here to have imaging to make sure it's not a ligament or something. Coronavirus screen: Vaccine status: Patient reports receiving the 2nd dose of the covid vaccine. At this time, the client does not indicate any symptoms associated with coronavirus-19. Ebola Screen: No symptoms or risks identified at this time. Initial Sepsis Screen: Does the patient meet any 2 criteria? No. Patient's initial sepsis screen is negative. Does the patient have a suspected source of infection? No. Patient's initial sepsis screen is negative. Risk Assessment: Do you want to hurt yourself or someone else? Patient reports no desire to harm self or others. Onset of symptoms was February 27, 2022. 09:50 Method Of Arrival: Ambulatory jl7 09:50 Acuity: RUPINDER 4 jl7 Triage Assessment: 09:53 General: Appears in no apparent distress. uncomfortable, Behavior is calm, cooperative, jl7 appropriate for age. Pain: Complains of pain in anterior aspect of right shoulder Pain radiates to right bicep Pain currently is 8 out of 10 on a pain scale. Musculoskeletal: Reports pain in right arm. Injury Description: pain to right shoulder. 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 - Social history:: Smoking status: Patient denies any tobacco usage or history of. Screenin:00 Abuse screen: Denies threats or abuse. Denies injuries from another. Nutritional jl7 screening: No deficits noted. Tuberculosis screening: No symptoms or risk factors identified. Fall Risk None identified. Vital Signs: 09:50 BP 158 / 88; Pulse 110; Resp 17; Temp 97.2; Pulse Ox 98% ; Weight 72.57 kg; Height 5 jl7 ft. 3 in. (160.02 cm); Pain 8/10; 09:50 Body Mass Index 28.34 (72.57 kg, 160.02 cm) jl7 ED Course: 09:17 Patient arrived in ED. am2 09:18 Edwige Villar MD is Private Physician. am2 09:19 Dorian Vanessa PA is PHCP. cp 09:19 Star Langley DO is Attending Physician. cp 09:53 Triage completed. jl7 09:53 Arm band placed on right wrist. jl7 10:00 Patient has correct armband on for positive identification. jl7 10:47 Jay Arce RN is Primary Nurse. jl7 10:52 XRAY Humerus RIGHT In Process Unspecified. EDMS 11:02 Jaren Alfaro MD is Referral Physician. cp 11:30 No provider procedures requiring assistance completed. Patient did not have IV access jl7 during this emergency room visit. 11:30 Sling \T\ swathe to right arm. jl7 Administered Medications: 11:00 Drug: Ibuprofen 800 mg Route: PO; 5 11:30 Follow up: Response: No change in condition jl7 11:00 Drug: Tylenol 650 mg Route: PO; [facility] 11:30 Follow up: Response: No adverse reaction jl7 Medication: 11:30 VIS not applicable for this client. jl7 Outcome: 11:02 Discharge ordered by . cp 11:30 Discharged to home ambulatory. jl7 11:30 Condition: stable 11:30 Discharge instructions given to patient, Instructed on discharge instructions, follow up and referral plans. medication usage, Demonstrated understanding of instructions, follow-up care, medications, Prescriptions given X 1. 11:31 Patient left the ED. jl7 Signatures: Dispatcher [employer] EDWA Dorian Vanessa PA PA cp Jay Arce RN RN jl7 Zaria Peña am2 Deb Bryan RN RN 5 Leanne Bishop Corrections: (The following items were deleted from the chart) 13:08 11:52 Patient left the ED. zm jl7
--- NOTE | 2022-03-13 11:16 | RAD REPORT ---
EXAM DESCRIPTION: RAD - Humerus Right - 03/13/2022 10:50 am CLINICAL HISTORY: Right arm pain FINDINGS: No fracture is seen
[2022-03-13 11:59] VITALS: BP 158/88; TEMP 97.2; O2SAT 98
== END 2022-03-13 11:52 | disposition home or self-care (01) ==
LOC: ER 09:15
DX: S46.211A Strain of muscle, fascia and tendon of other parts of biceps, right arm, initial encounter (principal)
CPT/HCPCS: 99284